=== PATIENT | female | born 1955 ===

== ENCOUNTER 2020-12-07 05:55 | Day surgery (SDC) | payer OTHER ==
[~2020-12-07 05:55] MED LIST: LEVO-T88 MCG PO; TENORMIN50 M1 PO
== END 2020-12-07 12:30 | disposition home or self-care (01) ==
LOC: CIR.AMB 05:55
PROVIDERS: ATTEND Surgery
DX: K80.10 Calculus of gallbladder with chronic cholecystitis without obstruction (principal); Z20.822 Contact with and (suspected) exposure to COVID-19